=== PATIENT | female | born 1950 | race Caucasian/White ===

== ENCOUNTER 2017-05-22 14:29 | Emergency (ER) | payer MEDICARE, OTHER ==
[2017-05-22 14:35] VITALS: BP 156/84
--- NOTE | 2017-05-22 15:05 | ED ---
Skin Complaint - HPI Summary HPI Summary: 66F presents with right hand redness and swelling for 3 days. She was seen at ER in [place] and placed on Keflex she says that the swelling has not gotten any better or any worst. She has only taken a day of antibiotic. She says that she has started to develop some pain in her right armpit and some numbness up her arm. She is still able to move her fingers. She had her ring cut off yesterday at the ED. She denies any trauma to the area or any scratch to the area. She denies any fever. - History of Current Complaint Chief Complaint: EDExtremityUpper Time Seen by Provider: 05/22/17 14:51 Stated Complaint: RT HAND SWELLING Pain Intensity: 1 - Allergy/Home Medications Allergies/Adverse Reactions: Allergies Allergy/AdvReac Type Severity Reaction Status Date / Time No Known Allergies Allergy Verified 07/26/13 16:30 PMH/Surg Hx/FS Hx/Imm Hx Endocrine/Hematology History: Denies: Hx Diabetes Cardiovascular History: Denies: Hx Hypertension, Hx Pacemaker/ICD Musculoskeletal History: Denies: Hx Osteoporosis Sensory History: Denies: Hx Hearing Aid Psychiatric History: Denies: Hx Panic Disorder - Surgical History Surgery Procedure, Year, and Place: CHOLECYSTECTOMY Infectious Disease History: No Infectious Disease History: Denies: Traveled Outside the [place] in Last 30 Days - Family History Known Family History: Positive: Cardiac Disease - Social History Alcohol Use: Occasionally Substance Use Type: Reports: None Smoking Status (MU): Never Smoked Tobacco Review of Systems Negative: Fever Negative: Chest Pain Negative: Shortness Of Breath Positive: Rash All Other Systems Reviewed And Are Negative: Yes Physical Exam Triage Information Reviewed: Yes Vital Signs On Initial Exam: Initial Vitals Temp Pulse Resp BP Pulse Ox 98.2 F 83 20 156/84 97 05/22/17 14:33 05/22/17 14:33 05/22/17 14:33 05/22/17 14:33 05/22/17 14:33 Vital Signs Reviewed: Yes Appearance: Positive: Well-Appearing Skin: Positive: Warm, Dry, Other - area of erythema and warmth of ring and middle finger over proximal phalanx and down palm and dorsum of hands extending 3cm down pal. nontender over flexor and extensor tendon. right armpit no lymphadenopathy felt. Head/Face: Positive: Normal Head/Face Inspection Eyes: Positive: Normal, Conjunctiva Clear Respiratory/Lung Sounds: Positive: Clear to Auscultation, Breath Sounds Present Cardiovascular: Positive: Normal, RRR Musculoskeletal: Positive: Strength/ROM Intact - ring and middle finger, Other - good pulses, capillary refill < 2 secs Diagnostics - Vital Signs Vital Signs Temp Pulse Resp BP Pulse Ox 05/22/17 14:35 98.3 F 86 20 156/84 99 05/22/17 14:33 98.2 F 83 20 156/84 97 - Laboratory Lab Statement: Any lab studies that have been ordered have been reviewed, and results considered in the medical decision making process. Course/Dx - Course Course Of Treatment: 66F presents with right hand redness and swelling for 3 days. She has been on keflex for a day and states the swelling has not gotten any better or any worst. She says that she has started to develop some pain in her right armpit and some numbness up her arm. She is still able to move her fingers. She denies any trauma to the area or any scratch to the area. She denies any fever. on exam has cellulitis of right ring and middle finger. do not suspect flexor tenosynovitis as nontender over tender and full ROM of finger at moment. no lymph nodes felt. will switch from keflex to augmentin for more coverage. told to follow up with primary but if gets worst to return to ED. patient understands and agrees with plan - Differential Diagnoses - Skin Complaint Differential Diagnoses: Abscess, Cellulitis, Contact Dermatitis - Diagnoses Provider Diagnoses: Cellulitis of right hand Discharge - Discharge Plan Condition: Good Disposition: HOME Prescriptions: Amoxicillin/Clavulanate TAB* [Augmentin TAB 875*] 875 mg PO BID #20 tab Patient Education Materials: Cellulitis (ED) Referrals: Camilla Lynch MD [Primary Care Provider] - Additional Instructions: Stop Keflex and switch to Augmentin two times a day for 10 days, first dose tonight Ice, elevate area Take Tylenol or ibuprofen for pain every 6 hours Follow up with primary within 5 days If swelling continues to spread, develop fever, can not bend finger or tender along length of entire finger, return to ED immediately. Images - Images Hands: 1 - cellulitis 2 - cellulitis
== END 2017-05-22 14:59 | disposition home or self-care (01) ==
LOC: ED 14:29
DX: L03.113 Cellulitis of right upper limb (principal); R21 Rash and other nonspecific skin eruption
CPT/HCPCS: 99281

== ENCOUNTER 2017-08-14 16:03 | Observation (INO) | payer MEDICARE ==
[2017-08-14 17:27] LABS: Hematocrit 38 % (35-47); Hemoglobin 12.8 g/dl (12.0-16.0); Mean Corpuscular HGB Conc 34 g/dl (31-36); Mean Corpuscular Hemoglobin 31 pg (27-31); Mean Corpuscular Volume 91 fL (80-97); Mean Platelet Volume 7 um3 (7.4-10.4); Red Blood Count 4.15 10^6/ul (4.0-5.4); Red Cell Distribution Width 14 % (10.5-15); White Blood Count 6.6 10^3/ul (3.5-10.8)
--- NOTE | 2017-08-14 17:40 | RAD ---
INDICATION: Chest pain COMPARISON: None. TECHNIQUE: Single AP portable view of the chest was obtained. FINDINGS: Image quality is compromised due to the relative inferiority of a portable chest x-ray. The heart and mediastinum exhibit normal size and contour. The lungs are grossly clear. There is no evidence of a large pleural effusion. Visualized bones are normal for the patient's age. IMPRESSION: No radiographic evidence for acute cardiopulmonary abnormality on this portable chest x-ray.
[2017-08-14 17:48] LABS: Albumin 3.8 g/dL (3.2-5.2); BUN/Creatinine Ratio 15.8 (8-20); Calcium 9.3 mg/dL (8.6-10.3); EGFR African American 70.7 (>60); Globulin 3.8 g/dL (2-4); Magnesium 1.9 mg/dL (1.9-2.7); Potassium 3.8 mmol/L (3.5-5.0); Total Bilirubin 0.4 mg/dL (0.2-1.0); Total Protein 7.6 g/dL (6.4-8.9)
[2017-08-14] MEDS ORDERED: NS 0.9% 1000 ML* 1,000 ML IV ONE (17:51)
[2017-08-14 18:04] LABS: TSH (Thyroid Stimulating Horm) 1.16 mcIU/mL (0.34-5.60)
[2017-08-14] MEDS ORDERED: Aspirin EC TAB* 325 MG PO ONE (19:20)
[2017-08-14] MEDS ORDERED: Nitroglycerin TAB 0.4 MG* 0.4 MG TAB SL PRN (19:29)
[2017-08-14] MEDS ORDERED: Enoxaparin(*) 40 MG/0.4 ML SYR SUBCUT SCH (20:00)
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
[2017-08-15 05:51] LABS: Albumin 3.5 g/dL (3.2-5.2); Calcium 8.7 mg/dL (8.6-10.3); EGFR African American 71.6 (>60); EGFR Non-African American 55.6 (>60); Globulin 3.1 g/dL (2-4); Total Bilirubin 0.3 mg/dL (0.2-1.0); Total Protein 6.6 g/dL (6.4-8.9)
[2017-08-15] MEDS ORDERED: Aspirin EC Low Dose* 81 MG TAB.EC PO SCH (09:00)
--- NOTE | 2017-08-15 12:31 | ED ---
Nikhil Rodriges Angela, scribed for Yandel Church MD on 08/14/17 at 1732 . HPI Chest Pain - HPI Summary HPI Summary: This pt is a 66 y/o female presenting to [facility] c/o intermittent dizziness and SOB for the last days, worse since yesterday. Pt reports she almost passed out yesterday but had some water and lunch, and her symptoms alleviated. All day today pt states feeling "out of sorts" with associated chest pain and left arm pain. Her pain is described as a dull pain and is rated 0.5 out of 10 in severity. Pt notes she has just developed a headache within the past hour. Pt denies LE swelling or pain, back pain, visual changes. She has had these symptoms before last year and was seen at Urgent Care. Pt was recommended to come to the ED but was not able to make it due to the weather. PSHx: cholecystectomy. - History of Current Complaint Chief Complaint: EDChestPainROMI Time Seen by Provider: 08/14/17 16:58 Hx Obtained From: Patient Onset/Duration: Started Days Ago Timing: Lasting Days Pain Intensity: 1 Pain Scale Used: 0-10 Numeric Chest Pain Radiates: Yes Chest Pain Radiates To:: Arm - left arm Associated Signs and Symptoms: Positive: Chest Pain, Headaches, Dizziness, Shortness of Breath, Other: - left arm pain. Negative: Vision Changes, Numbness , Tingling, Cough, Back Pain, Calf Pain/Swelling - Allergy/Home Medications Allergies/Adverse Reactions: Allergies Allergy/AdvReac Type Severity Reaction Status Date / Time No Known Allergies Allergy Verified 08/14/17 16:05 PMH/Surg Hx/FS Hx/Imm Hx Endocrine/Hematology History: Denies: Hx Diabetes Cardiovascular History: Denies: Hx Hypertension, Hx Pacemaker/ICD Musculoskeletal History: Denies: Hx Osteoporosis Sensory History: Denies: Hx Hearing Aid Psychiatric History: Denies: Hx Panic Disorder - Surgical History Surgery Procedure, Year, and Place: CHOLECYSTECTOMY Infectious Disease History: No Infectious Disease History: Denies: Traveled Outside the US in Last 30 Days - Family History Known Family History: Positive: Cardiac Disease - grandmother: fatal PR at age of 70s - Social History Alcohol Use: Occasionally Substance Use Type: Reports: None Smoking Status (MU): Never Smoked Tobacco Review of Systems Negative: Fever, Chills Negative: Blurred Vision Positive: Chest Pain Positive: Shortness Of Breath Negative: Abdominal Pain, Vomiting, Diarrhea Positive: Other - left arm pain. Negative: Edema Neurological: Other - dizziness Positive: Headache. Negative: Weakness All Other Systems Reviewed And Are Negative: Yes Physical Exam - Summary Physical Exam Summary: VITAL SIGNS: Reviewed. GENERAL: Patient is a well-developed and nourished female who is lying comfortable in the stretcher. Patient is not in any acute respiratory distress. HEAD AND FACE: No signs of trauma. No ecchymosis, hematomas or skull depressions. No sinus tenderness. EYES: PERRLA, EOMI x 2, No injected conjunctiva, no nystagmus. EARS: Hearing grossly intact. Ear canals and tympanic membranes are within normal limits. MOUTH: Oropharynx within normal limits. NECK: Supple, trachea is midline, no adenopathy, no JVD, no carotid bruit, no c- spine tenderness, neck with full ROM. CHEST: Symmetric, no tenderness at palpation LUNGS: Clear to auscultation bilaterally. No wheezing or crackles. CVS: Regular rate and rhythm, S1 and S2 present, no murmurs or gallops appreciated. ABDOMEN: Soft, non-tender. No signs of distention. No rebound no guarding, and no masses palpated. Bowel sounds are normal. EXTREMITIES: FROM in all major joints, no edema, no cyanosis or clubbing. NEURO: Alert and oriented x 3. No acute neurological deficits. Speech is normal and follows commands. SKIN: Dry and warm Triage Information Reviewed: Yes Vital Signs On Initial Exam: Initial Vitals Temp Pulse Resp BP Pulse Ox 98.4 F 58 16 121/82 99 08/14/17 16:05 08/14/17 16:05 08/14/17 16:05 08/14/17 16:05 08/14/17 16:05 Vital Signs Reviewed: Yes - Aimee Coma Scale Coma Scale Total: 15 Diagnostics - Vital Signs Vital Signs Temp Pulse Resp BP Pulse Ox 08/14/17 17:00 62 18 119/75 97 08/14/17 16:48 57 10 99 08/14/17 16:46 119/70 08/14/17 16:05 98.4 F 58 16 121/82 99 - Laboratory Lab Results: Lab Results 09/21/17 09/21/17 09/21/17 Range/Units 17:05 17:05 17:05 WBC 6.6 (3.5-10.8) 10^3/ul RBC 4.15 (4.0-5.4) 10^6/ul Hgb 12.8 (12.0-16.0) g/dl Hct 38 (35-47) % MCV 91 (80-97) fL MCH 31 (27-31) pg MCHC 34 (31-36) g/dl RDW 14 (10.5-15) % Plt Count 246 (150-450) 10^3/ul MPV 7 L (7.4-10.4) um3 Neut % (Auto) 59.9 (38-83) % Lymph % (Auto) 28.2 (25-47) % [place] % (Auto) 9.0 (1-9) % Eos % (Auto) 1.9 (0-6) % Baso % (Auto) 1.0 (0-2) % Absolute Neuts (auto) 4.0 (1.5-7.7) 10^3/ul Absolute Lymphs (auto) 1.9 (1.0-4.8) 10^3/ul Absolute Monos (auto) 0.6 (0-0.8) 10^3/ul Absolute Eos (auto) 0.1 (0-0.6) 10^3/ul Absolute Basos (auto) 0.1 (0-0.2) 10^3/ul Absolute Nucleated RBC 0 10^3/ul Nucleated RBC % 0 D-Dimer, Quantitative (Less Than 230) ng/mL Sodium 131 L (133-145) mmol/L Potassium 3.8 (3.5-5.0) mmol/L Chloride 100 L (101-111) mmol/L Carbon Dioxide 27 (22-32) mmol/L Anion Gap 4 (2-11) mmol/L BUN 16 (6-24) mg/dL Creatinine 1.01 H (0.51-0.95) mg/dL Est GFR ( Amer) 70.7 (>60) Est GFR (Non-Af Amer) 55.0 (>60) BUN/Creatinine Ratio 15.8 (8-20) Glucose 86 (70-100) mg/dL Lactic Acid (0.5-2.0) mmol/L Calcium 9.3 (8.6-10.3) mg/dL Magnesium 1.9 (1.9-2.7) mg/dL Total Bilirubin 0.40 (0.2-1.0) mg/dL AST 48 H (13-39) U/L ALT 60 H (7-52) U/L Alkaline Phosphatase 85 (34-104) U/L Total Creatine Kinase 173 (10-223) U/L CK-MB (CK-2) 5.4 (0.6-6.3) ng/mL Troponin I 0.00 (<0.04) ng/mL B-Natriuretic Peptide 24 ( - 100) pg/mL Total Protein 7.6 (6.4-8.9) g/dL Albumin 3.8 (3.2-5.2) g/dL Globulin 3.8 (2-4) g/dL Albumin/Globulin Ratio 1.0 (1-3) TSH 1.16 (0.34-5.60) mcIU/mL 08/14/17 08/14/17 Range/Units 17:05 17:05 WBC (3.5-10.8) 10^3/ul RBC (4.0-5.4) 10^6/ul Hgb (12.0-16.0) g/dl Hct (35-47) % MCV (80-97) fL MCH (27-31) pg MCHC (31-36) g/dl RDW (10.5-15) % Plt Count (150-450) 10^3/ul MPV (7.4-10.4) um3 Neut % (Auto) (38-83) % Lymph % (Auto) (25-47) % [place] % (Auto) (1-9) % Eos % (Auto) (0-6) % Baso % (Auto) (0-2) % Absolute Neuts (auto) (1.5-7.7) 10^3/ul Absolute Lymphs (auto) (1.0-4.8) 10^3/ul Absolute Monos (auto) (0-0.8) 10^3/ul Absolute Eos (auto) (0-0.6) 10^3/ul Absolute Basos (auto) (0-0.2) 10^3/ul Absolute Nucleated RBC 10^3/ul Nucleated RBC % D-Dimer, Quantitative < 200 (Less Than 230) ng/mL Sodium (133-145) mmol/L Potassium (3.5-5.0) mmol/L Chloride (101-111) mmol/L Carbon Dioxide (22-32) mmol/L Anion Gap (2-11) mmol/L BUN (6-24) mg/dL Creatinine (0.51-0.95) mg/dL Est GFR ( Amer) (>60) Est GFR (Non-Af Amer) (>60) BUN/Creatinine Ratio (8-20) Glucose (70-100) mg/dL Lactic Acid 0.6 (0.5-2.0) mmol/L Calcium (8.6-10.3) mg/dL Magnesium (1.9-2.7) mg/dL Total Bilirubin (0.2-1.0) mg/dL AST (13-39) U/L ALT (7-52) U/L Alkaline Phosphatase (34-104) U/L Total Creatine Kinase (10-223) U/L CK-MB (CK-2) (0.6-6.3) ng/mL Troponin I (<0.04) ng/mL B-Natriuretic Peptide ( - 100) pg/mL Total Protein (6.4-8.9) g/dL Albumin (3.2-5.2) g/dL Globulin (2-4) g/dL Albumin/Globulin Ratio (1-3) TSH (0.34-5.60) mcIU/mL Result Diagrams: 08/14/17 17:05 08/15/17 05:10 Lab Statement: Any lab studies that have been ordered have been reviewed, and results considered in the medical decision making process. - Radiology Chest XR Xray Interpretation: No Acute Changes - IMPRESSION: No radiographic evidence for acute cardiopulmonary abnormality on this portable chest x-ray. ED physician has reviewed this radiology report and agrees. Radiology Interpretation Completed By: Radiologist - EKG 1610 Cardiac Rate: NL EKG Rhythm: Sinus Rhythm EKG Interpretation: No ST elevation. Slight ST depression in V4, V5, V6 and II and III. Chest Pain Course/Dx - Course Assessment/Plan: This pt is a 66 y/o female presenting to [facility] c/o intermittent dizziness and SOB for the last days, worse since yesterday. Pt reports she almost passed out yesterday but had some water and lunch, and her symptoms alleviated. All day today pt states feeling "out of sorts" with associated chest pain and left arm pain. Her pain is described as a dull pain and is rated 0.5 out of 10 in severity. Pt notes she has just developed a headache within the past hour. Pt denies LE swelling or pain, back pain, visual changes. She has had these symptoms before last year and was seen at Urgent Care. Pt was recommended to come to the ED but was not able to make it due to the weather. PSHx: cholecystectomy. Test results show sodium of 131, creatinine of 1.01, increased LFTs. Troponin is 0.00 and D-dimer is less than 200. EKG shows NSR without any ST elevations, slight ST depression in V4, V5, and V6, and also in II and III. In the ED course, the pt is asymptomatic and remains stable. Since the pt has an abnormal EKG, with possible signs of ischemia, I discussed the case with Dr. Woodward who has accepted the pt for admission. The pt is hemodynamically stable, alert and oriented x3. - Chest Pain Differential Diagnosis/HQI/PQRI: Acute PR, ACS, Angina, CHF, Chest Wall, GI Disease, Lower Respiratory Infection - Diagnoses Provider Diagnoses: Chest pain, rule out acute coronary syndrome Discharge - Discharge Plan Condition: Stable Disposition: ADMITTED TO [facility] The documentation as recorded by the Nikhil mena Angela accurately reflects the service I personally performed and the decisions made by me, Yandel Church MD.
[2017-08-15 12:43] VITALS: BP 117/66
--- NOTE | 2017-08-15 13:19 | RAD ---
HISTORY: Chest pain, shortness of breath COMPARISONS: None TECHNIQUE: A 1 day stress/rest myocardial perfusion study was performed, with exercise stress. The exercise portion was performed using the Trever protocol, for a total METs of 10.1. The stress portion was monitored by Dr. Farris. Gated SPECT imaging was performed, with CT-based attenuation correction DOSE: Stress: Technetium 99m tetrofosmin, 25.8 millicuries, injected at 12:17 PM on August 15, 2017 Rest: Technetium 99m tetrofosmin, 10.4 millicuries, injected at 7:35 AM on August 15, 2017 Pharmacologic agent: None FINDINGS: CARDIAC MONITORING: No EKG changes of ischemia with stress EF: 77 % TID: 0.93 MOTION: Normal motion, with normal wall thickening. PERFUSION: There is a small fixed defect of the distal septum. Marginal reversibility is likely misregistration artifact. There is physiologic apical thinning. OTHER: None IMPRESSION: SMALL FIXED DEFECT OF DISTAL SEPTUM, WHICH MAY REFLECT REMOTE INFARCT. NO DEFINITE REVERSIBLE PERFUSION DEFECTS. ASSESSMENT: LOW RISK. Based on imaging criteria from ACC/AHA 2002. Guideline Update for the Management of Patient's with Chronic Stable Angina, table 23. Noninvasive Risk Stratification.
--- NOTE | 2017-08-15 14:06 | DCNOTE ---
Patient seen this afternoon after stress test. Had no recurrence of symptoms throughout hospital stay. Tolerated exercise stress test with no issues. On exam, RRR, s1 and s2 present, no m/g/r, abd soft, NTND, BS+, lungs CTA B/L, no w/r/r Tele with no arrhythmias. NST low risk. Will discharge home with PCP follow-up for continued work-up of symptoms.
--- NOTE | 2017-08-16 10:36 | DS ---
CC: Dr. Lynch DISCHARGE SUMMARY: DATE OF ADMISSION: 08/14/17 DATE OF DISCHARGE: 08/15/17 PRIMARY CARE PHYSICIAN: Dr. Lynch. PRINCIPAL DISCHARGE DIAGNOSES: Chest pain, EKG changes, shortness of breath. STUDIES DONE DURING HOSPITALIZATION: Chest x-ray, impression: No evidence for acute cardiopulmonar y abnormality. Nuclear cardiac stress test, impression: Small fixed defect of the distal septum, w hich may reflect remote infarct, no definite reversible perfusion defects. Assessment: Low risk. HISTORY OF PRESENT ILLNESS AND HOSPITAL SUMMARY: Please see the full history and physical done by yina mcneil for full details. Briefly, Ms. Oro is a 66-year-old female with past medical history of celiac disease, who presented to the hospital after she had been having some intermittent episodes of dizz iness with associated shortness of breath and the day of admission developed some chest pain that ra diated down the left arm. The patient had no cardiac risk factors; however, she did have some EKG f indings that were concerning, specifically some ST depressions in inferior leads and the lateral ijeoma ds. There was no old EKG to compare to. Decision was made to observe the patient overnight. Tropon ins were trended, which remained negative. The patient was monitored on telemetry and no arrhythmia s were noted. She underwent a nuclear cardiac stress test the following morning, which was also unr emarkable. The patient had no further symptoms during her hospital stay. O2 saturations remained n ormal on room air. Etiology of these symptoms is not quite clear at this time and they have not rec urred during the hospitalization. She will follow up with her PCP for further workup if they persist . TIME SPENT: Total time spent on this discharge was 45 minutes. This is a summary of the hospitalization, please see the full medical record for further details. [id number] #: [id number]
== END 2017-08-15 14:43 | disposition home or self-care (01) ==
LOC: ED 16:03 → MEDTELE 18:44
PROVIDERS: ADMIT Hospitalist; ATTEND Hospitalist
DX: R07.9 Chest pain, unspecified (principal); R06.02 Shortness of breath; K90.0 Celiac disease; R74.0 Nonspecific elevation of levels of transaminase and lactic acid dehydrogenase [LDH]; R00.1 Bradycardia, unspecified; Z79.899 Other long term (current) drug therapy
CPT/HCPCS: 36415; 71010; 78452; 80053; 82550; 82553; 83605; 83735; 83880; 84443; 84484; 85025; 85379; 87040; 93005; 93017; 96360; 96361; 96372; 99284; A9270-GY; A9502; G0378; J1650